=== PATIENT | male | born 1965 | race Caucasian/White ===

== ENCOUNTER 2025-01-21 21:10 | Emergency (ER) | payer OTHER ==
[2025-01-21] MEDS: Take Home: Acetaminophen/oxyCODONE 325-5 MG, 5 Tab Pack PO ONE (22:40)
== END 2025-01-21 22:35 | disposition home or self-care (01) ==
LOC: DL.ED 21:10
DX: M17.11 Unilateral primary osteoarthritis, right knee (principal)
CPT/HCPCS: 73562; 96372; 99283; A9270; J2270